=== PATIENT | female | born 1965 | race Caucasian/White ===

== ENCOUNTER 2016-11-11 19:03 | Emergency (ER) | payer OTHER | END 2016-11-11 20:03 | disposition home or self-care (01) | LOC: BURERS 19:03 | DX: S29.011A Strain of muscle and tendon of front wall of thorax, initial encounter (principal); I10 Essential (primary) hypertension; E11.9 Type 2 diabetes mellitus without complications; X58.XXXA Exposure to other specified factors, initial encounter | CPT/HCPCS: 99283 ==

== ENCOUNTER 2020-07-20 11:08 | Emergency (ER) | payer OTHER ==
[2020-07-20] MEDS ORDERED: Ketorolac Tromethamine 30 MG/ML VIAL ONE (11:55)
[2020-07-20 17:58] LABS: SARS-CoV-2 PCR by NAA DETECTED (NotDetected)
== END 2020-07-20 12:20 | disposition home or self-care (01) ==
LOC: BURERS 11:08
DX: U07.1 COVID-19 (principal); I10 Essential (primary) hypertension; E11.9 Type 2 diabetes mellitus without complications; Z79.4 Long term (current) use of insulin
CPT/HCPCS: 87635; 99283; J1885; U0003; U0005